=== PATIENT | female | born 1995 | race Hispanic/Latino ===

== ENCOUNTER 2018-08-17 01:52 | Emergency (ER) | payer BC ==
[~2018-08-17] VITALS: Ht 162.6 cm; Wt 119.3 kg
[2018-08-17 02:20] VITALS: BP 139/82
== END 2018-08-17 02:26 | disposition home or self-care (01) ==
LOC: ER 01:52
DX: G58.9 Mononeuropathy, unspecified (principal); G56.21 Lesion of ulnar nerve, right upper limb
CPT/HCPCS: 99282